=== PATIENT | female | born 1975 | race Caucasian/White ===

== ENCOUNTER 2018-12-22 11:17 | Observation (INO) ==
[2018-12-22] MEDS ORDERED: Naloxone 0.4 MG/ML INJ IVP PRN (14:32)
[2018-12-22 15:33] LABS: Immature Reticulocyte % 13.5 % (11.0-38.0); Retculocyte # 0.07 M/mcL (0.05-0.10); Reticulocyte % 1.7 % (1.6-2.8)
[2018-12-22 15:41] LABS: Basophils % 0.3 %; Eosinophils # 0.1 K/mcL (0.0-0.6); Eosinophils % 1.7 %; Hemoglobin 6.6 g/dL (11.5-15.4); Immature Granulocytes % 0.3 % (0-4); Lymphocytes # 1.3 K/mcL (0.6-4.6); Mean Corpuscular HGB Conc 26.4 g/dL (31.6-35.5); Mean Corpuscular Hemoglobin 16.4 pg (28.0-33.3); Mean Platelet Volume 10.3 fL (9.4-12.4); Monocytes # 0.4 K/mcL (0.0-1.3); Monocytes % 12.3 %; Neutrophils # 1.7 K/mcL (1.6-8.9); Platelet Count 249 K/mcL (140-400); Red Blood Count 4.03 M/mcL (3.82-4.97); Segmented Neutrophils % 48.4 %; White Blood Count 3.5 K/mcL (4.3-11.1)
[2018-12-22] MEDS ORDERED: 0.9 % Sodium Chloride 250 ML IVC SCH (16:00)
[2018-12-22] MEDS ORDERED: Iron Sucrose Complex 400 MG in 0.9 % Sodium Chloride 250 ML IVPB ONE (16:18)
[2018-12-22 16:34] LABS: INR 1.1; Prothrombin Time 12.5 Seconds (9.4-12.1)
[2018-12-22 17:46] LABS: Ferritin < 8 ng/mL (10-120); Iron < 10 mcg/dL (50-170); Transferrin 381 mg/dL (203-362)
[2018-12-23 05:54] LABS: Basophils % 0.3 %; Eosinophils # 0.1 K/mcL (0.0-0.6); Eosinophils % 1.7 %; Hematocrit 24.9 % (35.3-44.9); Hemoglobin 6.7 g/dL (11.5-15.4); Immature Granulocytes % 0.2 % (0-4); Lymphocytes # 1.4 K/mcL (0.6-4.6); Lymphocytes % 23.1 %; Mean Corpuscular HGB Conc 26.9 g/dL (31.6-35.5); Mean Corpuscular Hemoglobin 16.8 pg (28.0-33.3); Mean Corpuscular Volume 62.4 fL (83.0-100.0); Mean Platelet Volume 10.6 fL (9.4-12.4); Monocytes # 0.9 K/mcL (0.0-1.3); Monocytes % 14.7 %; Neutrophils # 3.5 K/mcL (1.6-8.9); Platelet Count 249 K/mcL (140-400); Red Blood Count 3.99 M/mcL (3.82-4.97); Red Cell Distribution Width 19.3 % (11.5-14.5); White Blood Count 5.9 K/mcL (4.3-11.1)
[2018-12-23 06:14] LABS: BUN/Creatinine Ratio 15 (6-26); Blood Urea Nitrogen 10 mg/dL (6-20); Carbon Dioxide 23 mEq/L (23-29); Chloride 107 mEq/L (98-107); Glucose 99 mg/dL (70-105); Osmolality,Calculated 287 (280-300); Potassium 3.6 mEq/L (3.5-5.1); Sodium 139 mEq/L (136-145); eGFR For African Americans > 60 (> 60); eGFR For Non-African Americans > 60 (> 60)
[2018-12-23 06:18] LABS: Anisocytosis 1+ (Not Present); Hypochromasia Present (Not Present); Microcytosis Present (Not Present); Platelet Estimate Normal (Normal)
[2018-12-23 07:06] VITALS: BP 119/77
[2018-12-26 10:46] LABS: FACV Specimen WHOLE BLOOD
[2018-12-26 14:02] LABS: Fac V Leiden R506Q Mut Result NEGATIVE
[2018-12-30] MEDS ORDERED: 0.9 % Sodium Chloride 500 ML IVC SCH
[2018-12-30] MEDS ORDERED: Hydrocortisone Sodium Succ 100 MG/2 ML VIAL IVP PRN
[2018-12-30] MEDS ORDERED: FERRIC CARBOXYMALTOSE IV SCH
[2018-12-30] MEDS ORDERED: EPINEPHrine 1 MG/ML VIAL SQ PRN
[2018-12-30] MEDS ORDERED: SODIUM CHLORIDE 0.9% IV SCH
[2019-01-06] MEDS ORDERED: 0.9 % Sodium Chloride 500 ML IVC SCH
[2019-01-06] MEDS ORDERED: SODIUM CHLORIDE 0.9% IV SCH
[2019-01-06] MEDS ORDERED: Hydrocortisone Sodium Succ 100 MG/2 ML VIAL IVP PRN
[2019-01-06] MEDS ORDERED: EPINEPHrine 1 MG/ML VIAL SQ PRN
[2019-01-06] MEDS ORDERED: FERRIC CARBOXYMALTOSE IV SCH
== END 2018-12-23 12:42 | disposition home or self-care (01) ==
LOC: 2ANU → SUATTDRO 13:37
PROVIDERS: ADMIT Internal Medicine; ATTEND Internal Medicine